=== PATIENT | female | born 1985 | race Hispanic/Latino ===

== ENCOUNTER 2018-01-22 17:42 | Emergency (ER) | payer OTHER ==
[2018-01-22 19:50] LABS: APPEARANCE,URINE Clear (CLEAR); BILIRUBIN,URINE Negative (NEGATIVE); COLOR,URINE Yellow (YELLOW); GLUCOSE, URINE (UA) 500 mg/dL (NEGATIVE); KETONES,URINE Trace mg/dL (NEGATIVE); LEUKOCYTE ESTERASE ,URINE Trace (NEGATIVE); NITRATE,URINE Positive (NEGATIVE); OCCULT BLOOD,URINE Negative (NEGATIVE); PH,URINE 5.5 (5.0-8.0); PROTEIN,URINE Negative (NEGATIVE)
[2018-01-22 19:54] LABS: HCG,QUAL RESULT NEGATIVE (NEGATIVE)
[2018-01-22] MEDS ORDERED: CEFTRIAXONE SODIUM 500 MG VIAL ONE (20:00)
[2018-01-22] MEDS ORDERED: AZITHROMYCIN 250 MG TABLET PO ONE (20:01)
[2018-01-22] MEDS ORDERED: LIDOCAINE HCL 1% 20 ML VIAL ONE (20:01)
[2018-01-22] MEDS ORDERED: ONDANSETRON ODT 4 MG TAB ONE (20:02)
[2018-01-22] MEDS ORDERED: KETOROLAC TROMETHAMINE 30MG/ML ONE (20:02)
[2018-01-22 20:04] LABS: BACTERIA,URINE Moderate /HPF (None Seen); RBC,URINE 0-1 /HPF (0-1); SQUAMOUS EPITHELIAL CELL,UR 0-2 /HPF (0-2)
== END 2018-01-22 21:24 | disposition home or self-care (01) ==
LOC: EDH 17:42
DX: N73.9 Female pelvic inflammatory disease, unspecified (principal); N39.0 Urinary tract infection, site not specified; M25.561 Pain in right knee; Z98.890 Other specified postprocedural states
CPT/HCPCS: 81001; 81025; 87077; 87088; 87186; 87210; 87486; 87797; 96372 ×2; 99284; J0696; J1885; 96374

== ENCOUNTER 2018-09-29 00:02 | Emergency (ER) | payer OTHER | END 2018-09-29 01:05 | disposition home or self-care (01) | LOC: EDH 00:02 | DX: S93.491A Sprain of other ligament of right ankle, initial encounter (principal); Z88.6 Allergy status to analgesic agent; W18.39XA Other fall on same level, initial encounter; Y93.89 Activity, other specified; Y92.098 Other place in other non-institutional residence as the place of occurrence of the external cause; Y99.8 Other external cause status | CPT/HCPCS: 73610 ==

== ENCOUNTER 2021-07-19 02:56 | Emergency (ER) | payer OTHER ==
[~2021-07-19] VITALS: Ht 157.5 cm; Wt 50.8 kg
[2021-07-19 02:58] VITALS: BP 97/49
[2021-07-19] MEDS ORDERED: PHARMACY COMMUNICATION MISC SCH (04:30)
[2021-07-19] MEDS ORDERED: HYDROCODONE/ACETAMINOPHEN 5/325 MG TAB PO ONE (04:30)
[2021-07-19] MEDS ORDERED: IBUPROFEN 600 MG TABLET PO ONE (04:30)
[2021-07-19] MEDS ORDERED: ACET1TAB97 PO (04:32)
== END 2021-07-19 04:47 | disposition home or self-care (01) ==
LOC: EDH 02:56
DX: S83.91XA Sprain of unspecified site of right knee, initial encounter (principal); Z79.1 Long term (current) use of non-steroidal anti-inflammatories (NSAID); Z88.5 Allergy status to narcotic agent; Z88.8 Allergy status to other drugs, medicaments and biological substances; X58.XXXA Exposure to other specified factors, initial encounter; Y93.89 Activity, other specified; Y92.89 Other specified places as the place of occurrence of the external cause; Y99.8 Other external cause status
CPT/HCPCS: 73562

== ENCOUNTER 2022-03-16 15:58 | Emergency (ER) | payer OTHER ==
[~2022-03-16] VITALS: Ht 157.5 cm; Wt 56.7 kg
[~2022-03-16 15:58] MED LIST: ACET1TAB97 PO
[2022-03-16 16:39] LABS: BASOPHILS % (AUTO) 0.3 % (0.0-5.0); EOSINOPHILS % (AUTO) 1.6 % (0.0-8.0); HEMATOCRIT 35.5 % (36-48); LYMPHOCYTES % (AUTO) 27.9 % (21.0-51.0); MEAN CORPUSCULAR HGB CONC 32.4 g/dL (32.0-36.0); MEAN CORPUSCULAR VOLUME 86.6 fL (79-99); MONOCYTES % (AUTO) 6.2 % (3.0-13.0); NEUTROPHILS % (AUTO) 63.6 % (40.0-77.0); PLATELET COUNT (AUTO) 320 K/uL (130-400); RED CELL DISTRIBUTION WIDTH 13.6 % (11.0-15.5); WHITE BLOOD COUNT (AUTO) 7.9 K/uL (4.8-10.8)
[2022-03-16 16:48] LABS: CREATININE 0.8 mg/dL (0.5-1.5); POTASSIUM 4.1 mmol/L (3.5-5.1)
[2022-03-16 16:59] LABS: ALBUMIN 3.7 g/dL (3.5-5.0); TOTAL PROTEIN, SERUM 7.6 g/dL (6.0-8.3)
[2022-03-16] MEDS ORDERED: ONDANSETRON 4MG INJ ONE (18:38)
[2022-03-16] MEDS ORDERED: ONDANSETRON 4MG INJ IVP ONE (19:00)
[2022-03-16] MEDS ORDERED: LIDOCAINE HCL 1% 20 ML VIAL ONE (19:43)
[2022-03-16] MEDS ORDERED: LEVETIRACETAM 500 MG/5 ML SD VIAL IV SCH ×2 (20:00)
[2022-03-16 20:15] VITALS: BP 110/67
[2022-03-16] MEDS ORDERED: CEPH500B PO (20:38)
[2022-03-16] MEDS ORDERED: LEVE-43 PO (20:38)
== END 2022-03-16 21:32 | disposition home or self-care (01) ==
LOC: EDH 15:58
DX: S01.01XA Laceration without foreign body of scalp, initial encounter (principal); G40.209 Localization-related (focal) (partial) symptomatic epilepsy and epileptic syndromes with complex partial seizures, not intractable, without status epilepticus; Z88.5 Allergy status to narcotic agent; Z88.8 Allergy status to other drugs, medicaments and biological substances; X58.XXXA Exposure to other specified factors, initial encounter; Y93.89 Activity, other specified; Y92.89 Other specified places as the place of occurrence of the external cause; Y99.8 Other external cause status
CPT/HCPCS: 99284; 70450; 96365; 96366; 96375; 82550; 80053; 84702; 85025; 84146; 36415; 72125; 12002; J1953 ×2; J2405 ×2

== ENCOUNTER 2023-02-13 21:46 | Emergency (ER) | payer OTHER, BC ==
[~2023-02-13] VITALS: Ht 152.4 cm; Wt 55.0 kg
[~2023-02-13 21:46] MED LIST changes: +CEPH500B PO; +LEVE-43 PO
[2023-02-13 23:32] VITALS: BP 112/73; PULSE 66; RESP 14; O2SAT 98
[2023-02-14 00:43] LABS: BASOPHILS # (AUTO) 0.02 K/uL (0.00-0.20); BASOPHILS % (AUTO) 0.2 % (0.0-5.0); EOSINOPHILS # (AUTO) 0.23 K/uL (0.00-0.70); EOSINOPHILS % (AUTO) 2.2 % (0.0-8.0); HEMATOCRIT 31.1 % (36-48); IMMATURE GRANULOCYTE ABSOLUTE 0.04 K/uL (0-1); LYMPHOCYTES # (AUTO) 2.8 K/uL (1.0-4.8); LYMPHOCYTES % (AUTO) 26.9 % (21.0-51.0); MEAN CORPUSCULAR HEMOGLOBIN 28.8 pg (27.0-33.0); MEAN CORPUSCULAR HGB CONC 32.2 g/dL (32.0-36.0); MEAN CORPUSCULAR VOLUME 89.6 fL (79-99); MONOCYTES # (AUTO) 0.7 K/uL (0.1-1.0); MONOCYTES % (AUTO) 6.4 % (3.0-13.0); NEUTROPHILS # (AUTO) 6.7 K/uL (1.8-7.7); NEUTROPHILS % (AUTO) 63.9 % (40.0-77.0); PLATELET COUNT (AUTO) 331 K/uL (130-400); RED BLOOD CELL COUNT(AUTO) 3.47 MIL/uL (4.00-5.50); RED CELL DISTRIBUTION WIDTH 14.7 % (11.0-15.5); WHITE BLOOD COUNT (AUTO) 10.5 K/uL (4.8-10.8)
[2023-02-14 00:56] LABS: CREATININE 0.7 mg/dL (0.5-1.5); POTASSIUM 3.7 mmol/L (3.5-5.1)
[2023-02-14 01:01] LABS: ALBUMIN 3.1 g/dL (3.5-5.0); BILIRUBIN,TOTAL 0.2 mg/dL (0.2-1.0)
[2023-02-14 01:05] LABS: APPEARANCE,URINE CLEAR (CLEAR); BILIRUBIN,URINE NEGATIVE (NEGATIVE); COLOR,URINE COLORLESS (YELLOW); GLUCOSE, URINE (UA) NEGATIVE (NEGATIVE); KETONES,URINE NEGATIVE (NEGATIVE); LEUKOCYTE ESTERASE ,URINE 75 Leu/uL (NEGATIVE); NITRATE,URINE 1+ (NEGATIVE); OCCULT BLOOD,URINE LARGE (NEGATIVE); PROTEIN,URINE NEGATIVE (NEGATIVE); UROBILINOGEN,URINE 0.2 mg/dL (0.2-1.0)
[2023-02-14 01:08] LABS: ADD UA MICROSCOPIC YES
[2023-02-14 01:11] LABS: HCG,QUALITATIVE URINE NEGATIVE (NEGATIVE)
[2023-02-14 01:12] LABS: BACTERIA,URINE RARE /HPF (None Seen); SQUAMOUS EPITHELIAL CELL,UR RARE /HPF (0-2)
[2023-02-14 02:11] LABS: AMPHET/METH SCREEN,URINE NEGATIVE (NEGATIVE); BARBITURATE SCREEN, URINE NEGATIVE (NEGATIVE); BENZODIAZEPINES SCREEN,URINE POSITIVE (NEGATIVE); CANNABINOID SCREEN,URINE NEGATIVE (NEGATIVE); COCAINE SCREEN,URINE NEGATIVE (NEGATIVE); OPIATE SCREEN,URINE NEGATIVE (NEGATIVE)
[2023-02-14 02:20] LABS: PHENCYCLIDINE SCREEN,URINE NEGATIVE (NEGATIVE)
[2023-02-14] MEDS ORDERED: NITR100C4 PO (02:30)
== END 2023-02-14 02:30 | disposition left against medical advice (07) ==
LOC: EDH 21:46
DX: N39.0 Urinary tract infection, site not specified (principal); Z88.5 Allergy status to narcotic agent; Z88.8 Allergy status to other drugs, medicaments and biological substances
CPT/HCPCS: 36415; 80053; 80305; 81001; 81025; 83690; 83880; 84484; 85025; 87077; 87088; 87186